=== PATIENT | female | born 1955 ===

== ENCOUNTER 2017-08-03 01:56 | Emergency (ER) | payer BC ==
[2017-08-03 02:30] VITALS: BMI 25.0
[2017-08-03] MEDS ORDERED: Sodium Chloride 0.9% 1,000 ML IV STA (02:49)
--- NOTE | 2017-08-03 02:54 | ED PDOC ---
Arrival/HPI - General Chief Complaint: GI Problem Time Seen by Provider: 08/03/17 02:44 Historian: Patient - History of Present Illness Narrative History of Present Illness (Text): 08/03/17 02:50 Kait Maier is a 61 year old female, whose past medical history includes gastritis, who presents to the emergency department complaining of nausea, vomiting, and diarrhea this evening.Occassional mild abdominal discomfort.Patient states that she had eaten a milk-based meal earlier prior to onset of symptoms. Patient denies any fever, chills, chest pain, shortness of breath, or any other complaint at this time. Time/Duration: 4-6 hours Symptom Onset: Gradual Symptom Course: Unchanged Activities at Onset: Light Context: Home Past Medical History - Provider Review Nursing Documentation Reviewed: Yes - Infectious Disease Hx of Infectious Diseases: None - Reproductive Menopause: Yes - Cardiac Hx Cardiac Disorders: No - Pulmonary Hx Respiratory Disorders: No - Neurological Hx Neurological Disorder: No - HEENT Hx HEENT Disorder: No - Renal Hx Renal Disorder: No - Endocrine/Metabolic Hx Endocrine Disorders: No - Hematological/Oncological Hx Blood Disorders: No - Integumentary Hx Dermatological Disorder: No - Musculoskeletal/Rheumatological Hx Musculoskeletal Disorders: No - Gastrointestinal Hx Gastrointestinal Disorders: No Other/Comment: Possible gastritis - Genitourinary/Gynecological Hx Genitourinary Disorders: No - Psychiatric Hx Psychophysiologic Disorder: No Hx Substance Use: No - Surgical History Other/Comment: Carpel Tunnel Sx - Anesthesia Hx Anesthesia: No Hx Anesthesia Reactions: No Hx Malignant Hyperthermia: No Family/Social History - Physician Review Nursing Documentation Reviewed: Yes Family/Social History: No Known Family HX Smoking Status: Never Smoked Hx Alcohol Use: No Hx Substance Use: No Allergies/Home Meds Allergies/Adverse Reactions: Allergies No Known Allergies Allergy (Verified 08/09/16 17:42) Review of Systems - Physician Review All systems were reviewed & negative as marked: Yes - Review of Systems Constitutional: absent: Fevers, Night Sweats Eyes: absent: Vision Changes ENT: absent: Hearing Changes Respiratory: absent: SOB, Cough Cardiovascular: absent: Chest Pain Gastrointestinal: Diarrhea, Nausea, Vomiting Genitourinary Female: absent: Dysuria, Frequency Musculoskeletal: absent: Arthralgias Skin: absent: Rash, Pruritis Neurological: absent: Headache, Dizziness Endocrine: absent: Diaphoresis Hemo/Lymphatic: absent: Adenopathy Psychiatric: absent: Anxiety, Depression Physical Exam Vital Signs Reviewed: Yes Vital Signs Temp Pulse Resp BP Pulse Ox 08/03/17 01:57 99.5 F 83 18 120/77 97 Temperature: Afebrile Blood Pressure: Normal Pulse: Regular Respiratory Rate: Normal Appearance: Positive for: Well-Appearing, Non-Toxic, Comfortable Mental Status: Positive for: Alert and Oriented X 3 - Systems Exam Head: Present: Atraumatic, Normocephalic Pupils: Present: PERRL Extroacular Muscles: Present: EOMI Conjunctiva: Present: Normal Mouth: Present: Moist Mucous Membranes Neck: Present: Normal Range of Motion Respiratory/Chest: Present: Clear to Auscultation, Good Air Exchange. No: Respiratory Distress, Accessory Muscle Use Cardiovascular: Present: Regular Rate and Rhythm, Normal S1, S2. No: Murmurs Abdomen: Present: Normal Bowel Sounds. No: Tenderness, Distention, Peritoneal Signs Back: Present: Normal Inspection Upper Extremity: Present: Normal Inspection. No: Cyanosis, Edema Lower Extremity: Present: Normal Inspection. No: Edema Neurological: Present: GCS=15, CN II-XII Intact, Speech Normal Skin: Present: Warm, Dry, Normal Color. No: Rashes Psychiatric: Present: Alert, Oriented x 3, Normal Insight, Normal Concentration Medical Decision Making ED Course and Treatment: 08/03/17 02:54 Impression: 61 year old female complaining of nausea, vomiting, and diarrhea this evening. Differential Diagnosis included but are not limited to: Gastritis vs. Gastroesophageal Reflux vs. Gastroenteritis Plan: -- Labs -- Protonix, Zofran, and IV Fluids -- Reassess and disposition Prior Visits: Notes and results from previous visits were reviewed. Patient was last seen in the emergency department on 08/09/16 for vomiting and diarrhea for a few hours that day. Patient was discharged home. Progress Notes: - Lab Interpretations Lab Results: 08/03/17 02:55 08/03/17 02:55 Lab Results 08/03/17 02:55: WBC 14.9 H, RBC 4.73, Hgb 14.1, Hct 42.1, MCV 89.0, MCH 29.8, MCHC 33.5, RDW 13.3, Plt Count 210, MPV 11.0 08/03/17 02:55: Sodium 141, Potassium 3.6, Chloride 106, Carbon Dioxide 22, Anion Gap 17, BUN 25 H, Creatinine 0.6 L, Est GFR ( Amer) > 60, Est GFR ( Non-Af Amer) > 60, Random Glucose 140 H, Calcium 10.3, Total Bilirubin 0.7, AST 27, ALT 30, Alkaline Phosphatase 75, Total Protein 8.3, Albumin 4.8, Globulin 3.5, Albumin/Globulin Ratio 1.4, Lipase 90 I have reviewed the lab results: Yes - RAD Interpretation Radiology Orders: 08/03/17 04:14 ABD & PELVIS IV CONTRAST ONLY [CT] Stat 08/03/17 04:17 GALLBLADDER & PANCREAS [US] Stat - Medication Orders Current Medication Orders: Discontinued Medications Sodium Chloride (Sodium Chloride 0.9%) 1,000 mls @ 999 mls/hr IV .Q1H1M STA Stop: 08/03/17 03:49 Last Admin: 08/03/17 03:03 Dose: 999 mls/hr eMAR Start Stop Document 08/03/17 03:03 AB (Rec: 08/03/17 03:03 [facility] [id number]) Intravenous Solution Start Date 08/03/17 Start Time 03:03 End Date 08/03/17 End time 04:03 Total Infusion Time 60 Ondansetron HCl (Zofran Inj) 4 mg IVP ONCE ONE Stop: 08/03/17 02:50 Last Admin: 08/03/17 03:03 Dose: 4 mg IVP Administration Document 08/03/17 03:03 AB (Rec: 08/03/17 03:03 [facility] [id number]) Charges for Administration # of IVP Administrations 1 Pantoprazole Sodium (Protonix Inj) 40 mg IVP ONCE STA Stop: 08/03/17 02:50 Last Admin: 08/03/17 03:03 Dose: 40 mg IVP Administration Document 08/03/17 03:03 AB (Rec: 08/03/17 03:03 [facility] [id number]) Charges for Administration # of IVP Administrations 1 - Scribe Statement The provider has reviewed the documentation as recorded by the Jaspaliblucien Arcos Provider Scribe Attestation: All medical record entries made by the Scribe were at my direction and personally dictated by me. I have reviewed the chart and agree that the record accurately reflects my personal performance of the history, physical exam, medical decision making, and the department course for this patient. I have also personally directed, reviewed, and agree with the discharge instructions and disposition. Disposition/Present on Arrival - Present on Arrival Any Indicators Present on Arrival: No History of DVT/PE: No History of Uncontrolled Diabetes: No Urinary Catheter: No History of Decub. Ulcer: No History Surgical Site Infection Following: None - Disposition Have Diagnosis and Disposition been Completed?: Yes Diagnosis: Gastroenteritis Disposition: HOME/ ROUTINE Disposition Time: 06:01 Patient Plan: Discharge Patient Problems: Current Active Problems Problem Status Onset Gastroenteritis Acute Condition: GOOD Discharge Instructions (ExitCare): Gastroenteritis (ED) Additional Instructions: Drink plenty of liquids/gatorade/bland diet next couple of days/meds as prescribed/follow up with your doctor this week Prescriptions: Omeprazole 20 mg PO DAILY #21 capsule. Referrals: Fidelina Alberts DO [Primary Care Provider] - Follow up with primary Forms: [employer] (South Korean)
[2017-08-03 03:15] LABS: HEMATOCRIT 42.1 % (36.0-48.0); MEAN CORPUSCULAR HEMOGLOBIN 29.8 pg (25.0-35.0); MEAN CORPUSCULAR HGB CONC 33.5 g/dl (31.0-37.0); RED CELL DISTRIBUTION WIDTH 13.3 % (11.5-14.5); WHITE BLOOD COUNT 14.9 10^3/ul (4.5-11.0)
[2017-08-03 03:18] LABS: ALB/GLOB RATIO 1.4 (1.1-1.8); ALKALINE PHOSPHATASE 75 U/L (38-126); ALT/SGPT 30 U/L (7-56); AST/SGOT 27 U/L (14-36); BILIRUBIN,TOTAL 0.7 mg/dL (0.2-1.3); BLOOD UREA NITROGEN 25 mg/dL (7-21); CALCIUM 10.3 mg/dL (8.4-10.5); CARBON DIOXIDE 22 mmol/L (21-33); CHLORIDE 106 mmol/L (98-107); GFR AFRICAN-AMERICAN > 60; GLUCOSE,RANDOM 140 mg/dL (70-110); LIPASE 90 U/L (23-300); POTASSIUM 3.6 mmol/L (3.6-5.0); SODIUM 141 mmol/L (132-148); TOTAL PROTEIN 8.3 g/dL (5.8-8.3)
[2017-08-03] MEDS ORDERED: Iohexol 350 MG/100 ML VIAL ONE (04:16)
--- NOTE | 2017-08-03 05:27 | US ---
EXAM: CT Abdomen and Pelvis With Intravenous Contrast CLINICAL HISTORY: 61 years old, female; Signs and symptoms; Vomiting TECHNIQUE: Axial computed tomography images of the abdomen and pelvis with intravenous contrast. All CT scans at this facility use one or more dose reduction techniques, viz.: automated exposure control; ma/kV adjustment per patient size (including targeted exams where dose is matched to indication; i.e. head); or iterative reconstruction technique. Coronal and sagittal reformatted images were created and reviewed. CONTRAST: 96 mL of omni 350 administered intravenously. COMPARISON: No relevant prior studies available. FINDINGS: Limitations: Motion artifact - mild. Lower thorax: Borderline cardiomegaly. Mild atelectasis/scarring. ABDOMEN: Liver: Unremarkable. No mass. Gallbladder and bile ducts: No calcified stones. No ductal dilation. Pancreas: No ductal dilation. No mass. Spleen: No splenomegaly. Adrenals: No mass. Kidneys and ureters: Few too small to characterize lesions within kidneys. No hydronephrosis. Stomach and bowel: Fluid within small bowel. Fluid/loose stool within RIGHT colon. Segmental mild mural thickening versus underdistention of the stomach. Few probable segmental areas of underdistention of colon. No definite bowel wall thickening. No obstruction. Appendix: Normal caliber. No inflammation. PELVIS: Bladder: Unremarkable. Reproductive: Unremarkable as visualized. ABDOMEN and PELVIS: Intraperitoneal space: No significant fluid collection. No free air. Bones/joints: No acute fracture. Soft tissues: Tiny umbilical hernia containing fat. Vasculature: Unremarkable. No aneurysm. Lymph nodes: No pathologically enlarged lymph nodes. IMPRESSION: 1. Mild gastric wall thickening vs underdistention. Clinical correlation is needed. 2. Fluid/loose stool within bowel may suggest diarrhea illness. 3. Incidental/non-acute findings are described above.
[2017-08-03 06:12] VITALS: BP 118/76; PULSE 76; RESP 16; TEMP 98.7; O2SAT 99
== END 2017-08-03 06:12 | disposition home or self-care (01) ==
LOC: ED 01:56
DX: K52.9 Noninfective gastroenteritis and colitis, unspecified (principal)
CPT/HCPCS: 74177; 76705; 80053; 83690; 85027; 96361; 96374; 96375; 99284; C9113; J2405; J7040; Q9967

== ENCOUNTER 2018-02-28 20:39 | Emergency (ER) | payer SELFPAY ==
[2018-02-28 20:39] VITALS: BMI 25.0
[2018-02-28] MEDS ORDERED: Sodium Chloride 0.9% 1,000 ML IV ONE (21:06)
--- NOTE | 2018-02-28 21:13 | ED PDOC ---
Arrival/HPI - General Chief Complaint: Female Genitourinary Time Seen by Provider: 02/28/18 21:05 Historian: Patient - History of Present Illness Narrative History of Present Illness (Text): 02/28/18 21:00 Monica Maier is a 62 year old female, whose past medical history includes gastritis, who presents to the Emergency department complaining of left -sided abdominal pain and suprapubic tenderness since yesterday. Patient also reports dysuria and hematuria. Patient denies any nausea, vomiting, hematochezia , dark stools, back pain, fever, chills, or any other complaints. Symptom Onset: Gradual Symptom Course: Unchanged Activities at Onset: Light Context: Home Past Medical History - Provider Review Nursing Documentation Reviewed: Yes - Infectious Disease Hx of Infectious Diseases: None - Cardiac Hx Cardiac Disorders: No - Pulmonary Hx Respiratory Disorders: No - Neurological Hx Neurological Disorder: No - HEENT Hx HEENT Disorder: No - Renal Hx Renal Disorder: No - Endocrine/Metabolic Hx Endocrine Disorders: No - Hematological/Oncological Hx Blood Disorders: No - Integumentary Hx Dermatological Disorder: No - Musculoskeletal/Rheumatological Hx Musculoskeletal Disorders: No - Gastrointestinal Hx Gastrointestinal Disorders: No Other/Comment: Possible gastritis - Genitourinary/Gynecological Hx Genitourinary Disorders: No - Psychiatric Hx Psychophysiologic Disorder: No Hx Substance Use: No - Surgical History Other/Comment: Carpel Tunnel Sx - Anesthesia Hx Anesthesia: No Hx Anesthesia Reactions: No Hx Malignant Hyperthermia: No Family/Social History - Physician Review Nursing Documentation Reviewed: Yes Family/Social History: Unknown Family HX Smoking Status: Never Smoked Hx Alcohol Use: No Hx Substance Use: No Allergies/Home Meds Allergies/Adverse Reactions: Allergies No Known Allergies Allergy (Verified 08/09/16 17:42) Review of Systems - Physician Review All systems were reviewed & negative as marked: Yes - Review of Systems Constitutional: Normal. absent: Fevers Eyes: Normal ENT: Normal Respiratory: Normal. absent: SOB, Cough Cardiovascular: Normal. absent: Chest Pain Gastrointestinal: Abdominal Pain. absent: Nausea, Vomiting, Appetite Changes, Hematochezia Genitourinary Female: Dysuria, Hematuria Musculoskeletal: Normal. absent: Back Pain, Neck Pain Skin: Normal. absent: Rash Neurological: Normal. absent: Headache, Dizziness Endocrine: Normal Hemo/Lymphatic: Normal Psychiatric: Normal Physical Exam Vital Signs Reviewed: Yes Vital Signs Temp Pulse Resp BP Pulse Ox 03/01/18 00:19 98.4 F 71 18 136/86 98 Temperature: Afebrile Blood Pressure: Normal Pulse: Regular Respiratory Rate: Normal Appearance: Positive for: Well-Appearing, Non-Toxic, Comfortable Pain Distress: None Mental Status: Positive for: Alert and Oriented X 3 - Systems Exam Head: Present: Atraumatic, Normocephalic Pupils: Present: PERRL Extroacular Muscles: Present: EOMI Conjunctiva: Present: Normal Mouth: Present: Moist Mucous Membranes Neck: Present: Normal Range of Motion Respiratory/Chest: Present: Clear to Auscultation, Good Air Exchange. No: Respiratory Distress, Accessory Muscle Use Cardiovascular: Present: Regular Rate and Rhythm, Normal S1, S2. No: Murmurs Abdomen: Present: Tenderness (Right-sided suprapubic tenderness). No: Distention, Peritoneal Signs Back: Present: Normal Inspection. No: CVA Tenderness, Midline Tenderness, Paraspinal Tenderness Upper Extremity: Present: Normal Inspection. No: Cyanosis, Edema Lower Extremity: Present: Normal Inspection. No: Edema Neurological: Present: GCS=15, CN II-XII Intact, Speech Normal Skin: Present: Warm, Dry, Normal Color. No: Rashes Psychiatric: Present: Alert, Oriented x 3, Normal Insight, Normal Concentration Medical Decision Making ED Course and Treatment: 02/28/18 21:00 Impression: 62 year old female complaining of left-sided/suprapubic abdominal pain, dysuria , and hematuria. Plan: -- CT Abdomen and Pelvis with IV contrast -- Labs, lipase -- Urinalysis, urine cultures -- IV fluids -- Reassess and disposition Prior Visits: Notes and results from previous visits were reviewed. On 08/03/2017, pt was seen in the Emergency department for nausea, vomiting, diarrhea, and occasional abdominal discomfort. Progress Notes: 02/28/18 23:38 CT Abdomen and Pelvis shows: Lower thorax: Small hiatal hernia. Elevation right hemidiaphragm. Atelectasis or fibrosis in the bases. ABDOMEN: Liver: Normal. No mass. Gallbladder and bile ducts: Normal. No calcified stones. No ductal dilation. Pancreas: Normal. No ductal dilation. Spleen: Normal. No splenomegaly. Adrenals: Normal. No mass. Kidneys and ureters: 3 mm low density in the right kidney is nonspecific. no hydronephrosis Stomach and bowel: Mild fecal retention. Few diverticula without diverticulitis. Appendix: No evidence of appendicitis. PELVIS: Bladder: Wall thickening of the urinary bladder, correlate for underdistention or cystitis. Reproductive: Unremarkable as visualized. ABDOMEN and PELVIS: Intraperitoneal space: Normal. No free air. No significant fluid collection. Bones/joints: Degenerative change in the spine. Soft tissues: Unremarkable. Vasculature: Normal. No abdominal aortic aneurysm. Lymph nodes: Normal. No enlarged lymph nodes. IMPRESSION: Wall thickening of the urinary bladder, correlate for underdistention or cystitis. Dictated and Authenticated by: Reynaldo Hua MD 02/28/2018 11:37 PM Eastern Time ([place] & [place]) 03/01/18 00:05 On re-evaluation, patient feels better and is in no acute distress. I have discussed the results and plan with the patient, who expresses understanding. Patient in agreement with plan to be discharged home. Patient is stable for discharge. Patient was instructed to follow up with physician or return if symptoms worsen or new concerning symptoms arise. - Lab Interpretations Lab Results: 02/28/18 21:28 02/28/18 21:28 Lab Results 02/28/18 21:28: Sodium 144, Potassium 3.4 L, Chloride 108 H, Carbon Dioxide 23, Anion Gap 17, BUN 17, Creatinine 0.7, Est GFR ( Amer) > 60, Est GFR (Non- Af Amer) > 60, Random Glucose 135 H, Calcium 9.1, Magnesium 1.7, Total Bilirubin 0.4, AST 25, ALT 36, Alkaline Phosphatase 66, Total Protein 6.8, Albumin 3.8, Globulin 3.0, Albumin/Globulin Ratio 1.3, Lipase 77 02/28/18 21:28: Urine Color Red, Urine Appearance Turbid, Urine pH 7.0, Ur Specific Ferrum 1.025, Urine Protein >=300 H, Urine Glucose (UA) Negative, Urine Ketones Trace H, Urine Blood Large H, Urine Nitrate Positive H, Urine Bilirubin Small H, Urine Urobilinogen 1.0 H, Ur Leukocyte Esterase Large H, Urine RBC Tntc, Urine WBC Tntc, Urine Bacteria Trace 02/28/18 21:28: WBC 12.3 H, RBC 4.03, Hgb 11.6 L D, Hct 35.4 L, MCV 87.8, MCH 28.8, MCHC 32.8, RDW 13.2, Plt Count 217, MPV 10.9, Gran % 77.0 H, Lymph % (Auto ) 15.8 L, Cedar % (Auto) 5.7, Eos % (Auto) 1.3 L, Baso % (Auto) 0.2, Gran # 9.48 H, Lymph # (Auto) 2.0, Cedar # (Auto) 0.7 H, Eos # (Auto) 0.2, Baso # (Auto) 0.03 I have reviewed the lab results: Yes - RAD Interpretation Radiology Orders: 02/28/18 21:05 ABD & PELVIS IV CONTRAST ONLY [CT] Stat Nut Or[place]ist: Radiologist - Medication Orders Current Medication Orders: Discontinued Medications Sodium Chloride (Sodium Chloride 0.9%) 1,000 mls @ 250 mls/hr IV .Q4H ONE Stop: 03/01/18 01:05 Last Admin: 02/28/18 21:37 Dose: 250 mls/hr eMAR Start Stop Document 02/28/18 21:37 OCS (Rec: 02/28/18 21:37 OCS [id number]) Intravenous Solution Start Date 02/28/18 Start Time 21:37 - Scribe Statement The provider has reviewed the documentation as recorded by the Barrett Pulliam Provider Scribe Attestation: All medical record entries made by the Scribe were at my direction and personally dictated by me. I have reviewed the chart and agree that the record accurately reflects my personal performance of the history, physical exam, medical decision making, and the department course for this patient. I have also personally directed, reviewed, and agree with the discharge instructions and disposition. Disposition/Present on Arrival - Present on Arrival Any Indicators Present on Arrival: No History of DVT/PE: No History of Uncontrolled Diabetes: No Urinary Catheter: No History of Decub. Ulcer: No History Surgical Site Infection Following: None - Disposition Have Diagnosis and Disposition been Completed?: Yes Diagnosis: Cystitis Disposition: HOME/ ROUTINE Disposition Time: 23:40 Condition: GOOD Discharge Instructions (ExitCare): Acute Cystitis (DC) Print Language: JAPANESE Additional Instructions: MONICA MAIER, thank you for letting us take care of you today. Your provider was Ramirez Ahumada DO and you were treated for ABDOMINAL PAIN. The emergency medical care you received today was directed at your acute symptoms. If you were prescribed any medication, please fill it and take as directed. It may take several days for your symptoms to resolve. Return to the Emergency Department if your symptoms worsen, do not improve, or if you have any other problems. Please contact your doctor or call one of the physicians/clinics you have been referred to that are listed on the Patient Visit Information form that is included in your discharge packet. Bring any paperwork you were given at discharge with you along with any medications you are taking to your follow up visit. Our treatment cannot replace ongoing medical care by a primary care provider outside of the emergency department. Thank you for allowing the [facility] team to be part of your care today. Follow up with your primary care doctor in 2-3 days for re-evaluation and further management. DAR JOSELUIS MAIER, osei por dejarnos atendflavio larios. Grant proveedor fue Ramirez Ahumada DO y usted fue tratado por DOLOR ABDOMINAL. La atencin m dica de emergencia que recibi hoy estaba dirigida a gia sntomas agudos. Si le prescribieron algn medicamento, llnelo y tome segn las indicaciones. Gia s ntomas pueden tardar varios mojica en resolverse. Regrese al Departamento de Emergencia si gia sntomas empeoran, no mejoran o si tiene algn otro problema. Comunquese con grant mdico o llame a whitley de los mdicos / clnicas a los que abarca sido referido que figura en el formulario de Informacin de visita del paciente que se incluye en grant paquete de vera. Traiga todos los documentos que recibi al momento del vera junto con los medicamentos que est tomando en grant visita de seguimiento. Nuestro tratamiento no puede reemplazar la atencin mdica en curso por un proveedor de atencin primaria fuera del departamento de emergencia. Osei por permitir que el equipo de [employer] sea parte de grant cuidado hoy. Loni un seguimiento con grant mdico de atencin primaria en 2-3 mojica para niki nueva evaluacin y administracin adicional. Prescriptions: Nitrofurantoin Macrocrystals [Macrobid] 100 mg PO BID #20 cap Referrals: [facility], [Non-Staff] - Follow up with primary Forms: [employer] (Welsh)
[2018-02-28 21:50] LABS: BASO # 0.03 K/mm3 (0.0-2.0); BASO % 0.2 % (0.0-3.0); EOS # 0.2 (0.0-0.7); EOS % 1.3 % (1.5-5.0); GRAN # 9.48 (1.4-6.5); HEMOGLOBIN 11.6 g/dL (12.0-16.0); LYMPH % 15.8 % (22.0-35.0); MEAN CELL VOLUME 87.8 fl (80.0-105.0); MEAN CORPUSCULAR HEMOGLOBIN 28.8 pg (25.0-35.0); MEAN CORPUSCULAR HGB CONC 32.8 g/dl (31.0-37.0); MEAN PLATELET VOLUME 10.9 fl (7.0-11.0); MONO # 0.7 (0.1-0.6); MONO % 5.7 % (1.0-6.0); RBC 4.03 10^6/uL (3.5-6.1); RED CELL DISTRIBUTION WIDTH 13.2 % (11.5-14.5); WHITE BLOOD COUNT 12.3 10^3/ul (4.5-11.0)
[2018-02-28 21:51] LABS: URINE BILIRUBIN SMALL (NEGATIVE); URINE BLOOD LARGE (NEGATIVE); URINE GLUCOSE (UA) NEGATIVE (NEGATIVE); URINE LEUKOCYTE ESTERASE LARGE Leu/uL (NEGATIVE); URINE PROTEIN >=300 mg/dL (<30 mg/dL)
[2018-02-28 21:56] LABS: URINE APPEARANCE TURBID (CLEAR); URINE COLOR RED (YELLOW)
[2018-02-28 22:01] LABS: ALB/GLOB RATIO 1.3 (1.1-1.8); ALBUMIN 3.8 g/dL (3.0-4.8); ALT/SGPT 36 U/L (7-56); AST/SGOT 25 U/L (14-36); BLOOD UREA NITROGEN 17 mg/dL (7-21); CALCIUM 9.1 mg/dL (8.4-10.5); GFR AFRICAN-AMERICAN > 60; GFR NON-AFRICAN AMERICAN > 60; LIPASE 77 U/L (23-300)
[2018-02-28 22:02] LABS: URINE BACTERIA TRACE (NEG); URINE RBC TNTC /hpf (0-2); URINE WBC TNTC /hpf (0-6)
[2018-02-28] MEDS ORDERED: Iohexol 350 MG/100 ML VIAL ONE (22:34)
[2018-03-01 00:19] VITALS: BP 136/86; PULSE 71; RESP 18; TEMP 98.4; O2SAT 98
--- NOTE | 2018-03-01 08:34 | CT ---
PROCEDURE: CT Abdomen and Pelvis without intravenous contrast HISTORY: left sided abd pain with n/v/d COMPARISON: None. TECHNIQUE: Technique. Contrast dose: Radiation dose: Total exam DLP = mGy-cm. This CT exam was performed using one or more of the following dose reduction techniques: Automated exposure control, adjustment of the mA and/or kV according to patient size, and/or use of iterative reconstruction technique. FINDINGS: LOWER THORAX: Unremarkable. LIVER: Unremarkable. No gross lesion or ductal dilatation. GALLBLADDER AND BILE DUCTS: Unremarkable. PANCREAS: Unremarkable. No gross lesion or ductal dilatation. SPLEEN: Unremarkable. ADRENALS: Unremarkable. No mass. KIDNEYS AND URETERS: Unremarkable. No hydronephrosis. No solid mass. VASCULATURE: Unremarkable. No aortic aneurysm. BOWEL: Unremarkable. No obstruction. No gross mural thickening. APPENDIX: Unremarkable. Normal appendix. PERITONEUM: Unremarkable. No free fluid. No free air. LYMPH NODES: Unremarkable. No enlarged lymph nodes. BLADDER: Unremarkable. REPRODUCTIVE: Unremarkable. BONES: No acute fracture. OTHER FINDINGS: None. IMPRESSION: Unremarkable non contrast enhanced CT of the abdomen and pelvis.
== END 2018-03-01 00:19 | disposition home or self-care (01) ==
LOC: ED 20:39
DX: N30.90 Cystitis, unspecified without hematuria (principal)
CPT/HCPCS: 74177; 80053; 81001; 83690; 83735; 85025; 87086; 87181; 99283; J7030; Q9967

== ENCOUNTER 2018-06-12 19:41 | Emergency (ER) | payer OTHER ==
[2018-06-12 19:50] VITALS: BMI 28.2
[2018-06-12 19:51] VITALS: RESP 18; TEMP 98.5; O2SAT 98
--- NOTE | 2018-06-12 22:18 | ED PDOC ---
Arrival/HPI - General Chief Complaint: Trauma Time Seen by Provider: 06/12/18 22:14 Historian: Patient - History of Present Illness Narrative History of Present Illness (Text): 06/12/18 22:14 62 year old female with no significant past medical history, presents to the emergency department complaining of left sided headache s/p a big wooden object fell and hit her head while she was cleaning at home. Patient also reports minimal pain to the left land. Patient took 2 Advil prior to arrival with no relief. Patient denies any LOC, fever, chills, chest pain, shortness of breath, nausea, vomiting, diarrhea, urinary symptoms, back pain, neck pain, dizziness, or any other complaints. Symptom Onset: Gradual Symptom Course: Unchanged Activities at Onset: Light Context: Home Past Medical History - Provider Review Nursing Documentation Reviewed: Yes - Infectious Disease Hx of Infectious Diseases: None - Cardiac Hx Cardiac Disorders: No - Pulmonary Hx Respiratory Disorders: No - Neurological Hx Neurological Disorder: No - HEENT Hx HEENT Disorder: No - Renal Hx Renal Disorder: No - Endocrine/Metabolic Hx Endocrine Disorders: No - Hematological/Oncological Hx Blood Disorders: No - Integumentary Hx Dermatological Disorder: No - Musculoskeletal/Rheumatological Hx Musculoskeletal Disorders: No - Gastrointestinal Hx Gastrointestinal Disorders: No Other/Comment: Possible gastritis - Genitourinary/Gynecological Hx Genitourinary Disorders: No - Psychiatric Hx Psychophysiologic Disorder: No Hx Substance Use: No - Surgical History Other/Comment: Carpel Tunnel Sx - Anesthesia Hx Anesthesia: No Hx Anesthesia Reactions: No Hx Malignant Hyperthermia: No Family/Social History - Physician Review Nursing Documentation Reviewed: Yes Family/Social History: No Known Family HX Smoking Status: Never Smoked Hx Alcohol Use: No Hx Substance Use: No Allergies/Home Meds Allergies/Adverse Reactions: Allergies No Known Allergies Allergy (Verified 06/12/18 19:50) Review of Systems - Physician Review All systems were reviewed & negative as marked: Yes - Review of Systems Constitutional: absent: Fevers, Other (Chills) Respiratory: absent: SOB Cardiovascular: absent: Chest Pain Gastrointestinal: absent: Diarrhea, Nausea, Vomiting Genitourinary Female: absent: Dysuria, Frequency, Hematuria Musculoskeletal: Other (left hand pain). absent: Back Pain, Neck Pain Neurological: Headache. absent: Dizziness Physical Exam - Physical Exam Narrative Physical Exam (Text): Gen: VS reviewed, alert, well developed, well nourished, nontoxic, mild distress. ENT: normal pharynx. Eye: EOMI, PERRL. Neck: no JVD, supple, no adenopathy. CV: regular rate, regular rhythm, no rubs, no murmur, no gallops, S1, S2, pulses equal and strong. Pulm: no distress, clear to auscultation, no wheeze, no rhonchi, breath sounds equal, no rales. Abd: soft, nontender, no guarding, no rebound, no rigidity, normal bowel sounds. Ext: no edema. Skin: good color, no rash, no cyanosis. Psych: responds appropriately to questions, normal affect. Neuro: oriented x 3, CN2-12 intact grossly, motor intact, sensation intact. Vital Signs Reviewed: Yes Vital Signs Temp Pulse Resp BP Pulse Ox 06/12/18 19:50 98.5 F 72 18 137/80 98 Temperature: Afebrile Blood Pressure: Normal Pulse: Regular Respiratory Rate: Normal Medical Decision Making ED Course and Treatment: 06/12/18 22:14 Impression: 62 year old female presents complaining of left sided headache s/p a wooden object fell and hit her head while she was cleaning at home. Plan: -- Head CT w/o contrast -- Tylenol -- Reassess and disposition Progress Notes: 06/13/18 00:11 re-eval, patient reports headache is significantly improved. patient ready to go home. television announcer language line used [id number]. patient was seen for headache after head injury. CT was done to rule out ICH. Patient sustained a mild contusion to her hand and xray deferred during this medical evaluation. - RAD Interpretation Narrative RAD Interpretations (Text): EXAM: CT Head Without IV contrast. Electronically signed on Jun 12, 2018 11:54:16 PM EDT by: Ramirez Ang M.D. IMPRESSION: No acute intracranial abnormality. Degreasing Wheel Operator: Radiologist - Scribe Statement The provider has reviewed the documentation as recorded by the Barrett Lopez Provider Scribe Attestation: All medical record entries made by the Scribe were at my direction and personally dictated by me. I have reviewed the chart and agree that the record accurately reflects my personal performance of the history, physical exam, medical decision making, and the department course for this patient. I have also personally directed, reviewed, and agree with the discharge instructions and disposition. Disposition/Present on Arrival - Present on Arrival Any Indicators Present on Arrival: No History of DVT/PE: No History of Uncontrolled Diabetes: No Urinary Catheter: No History of Decub. Ulcer: No History Surgical Site Infection Following: None - Disposition Have Diagnosis and Disposition been Completed?: Yes Diagnosis: Head injury Disposition: HOME/ ROUTINE Disposition Time: 00:16 Patient Plan: Discharge Condition: STABLE Discharge Instructions (ExitCare): Closed Head Injury Print Language: SAMOAN Additional Instructions: MONICA RAMSAY, thank you for letting us take care of you today. Your provider was Dr. Rhys Angel and you were treated for HEAD INJURY. The emergency medical care you received today was directed at your acute symptoms. If you were prescribed any medication, please fill it and take as directed. It may take several days for your symptoms to resolve. Return to the Emergency Department if your symptoms worsen, do not improve, or if you have any other problems. Please contact your doctor or call one of the physicians/clinics you have been referred to that are listed on the Patient Visit Information form that is included in your discharge packet. Bring any paperwork you were given at discharge with you along with any medications you are taking to your follow up visit. Our treatment cannot replace ongoing medical care by a primary care provider outside of the emergency department. Thank you for allowing the [facility] team to be part of your care today. If you had an X-Ray or CT scan: A Radiologist will review the ED reading if any change in treatment is needed we will contact you. If you had a blood, urine, or wound culture: It will take several days for the results, if any change in treatment is needed we will contact you. If you had an STI test: It will take 48 hours for the results. Please call after 1 week if you have not heard back. Prescriptions: Ondansetron [Zofran] 4 mg PO Q8H #12 tab Referrals: [facility] [Outside] - Follow up with primary Rohini Leroy MD [Medical Doctor] - Follow up with primary Forms: My [employer] (British)
[2018-06-13 00:36] VITALS: BP 130/82; PULSE 74
--- NOTE | 2018-06-13 08:19 | CT ---
Date of service: 06/12/2018 PROCEDURE: CT HEAD WITHOUT CONTRAST. HISTORY: head injury COMPARISON: None available. TECHNIQUE: Axial computed tomography images were obtained through the head/brain without intravenous contrast. Radiation dose: Total exam DLP = 782.73 mGy-cm. This CT exam was performed using one or more of the following dose reduction techniques: Automated exposure control, adjustment of the mA and/or kV according to patient size, and/or use of iterative reconstruction technique. FINDINGS: HEMORRHAGE: No intracranial hemorrhage. BRAIN: No mass effect or edema. No atrophy or chronic microvascular ischemic changes. VENTRICLES: Unremarkable. No hydrocephalus. CALVARIUM: Unremarkable. PARANASAL SINUSES: Unremarkable as visualized. No significant inflammatory changes. MASTOID AIR CELLS: Unremarkable as visualized. No inflammatory changes. OTHER FINDINGS: The report concurs with the preliminary [facility] report IMPRESSION: No acute findings
== END 2018-06-13 00:36 | disposition home or self-care (01) ==
LOC: ED 19:41
DX: S09.90XA Unspecified injury of head, initial encounter (principal); W22.8XXA Striking against or struck by other objects, initial encounter; Y93.E9 Activity, other interior property and clothing maintenance; Y92.009 Unspecified place in unspecified non-institutional (private) residence as the place of occurrence of the external cause

== ENCOUNTER 2019-01-11 10:41 | Outpatient (CLI) | payer MEDICAID | END 2019-01-11 10:42 | disposition home or self-care (01) | LOC: RAD 10:41 | DX: E03.9 Hypothyroidism, unspecified (principal) ==